=== PATIENT | female | born 2000 | race African-American/Black ===

== ENCOUNTER → 2022-05-06 | Outpatient (CLI) | payer MEDICAID ==
[~2022-05-06] MED LIST: REGLAN 10MG10 MG/TAB PO
== END ==
LOC: COL.RAD 06:15
DX: K80.20 Calculus of gallbladder without cholecystitis without obstruction (principal)

== ENCOUNTER 2022-06-30 12:46 | Outpatient (CLI) | payer MEDICAID ==
[~2022-06-30] VITALS: Ht 165.1 cm; Wt 119.1 kg
[2022-06-30] MEDS ORDERED: FERROUS SU325 MG/TAB PO (13:27)
[2022-06-30] MEDS ORDERED: PRENATAL TABLET PO (13:27)
[2022-06-30 13:30] VITALS: BP 110/53; PULSE 93; TEMP 98.1
--- NOTE | 2022-06-30 13:30 | NUR ---
1310- Pt arrives on unit via wheelchair with her mother. Complains of red vaginal bleeding. Pt and this RN into bathroom. Pt shows this RN pants that has a golf ball sized amount of dark red/brown blood noted. Pt states she put on a peripad after she noticed blood in her pants. Peripad shows scant dark red/brown blood, looks like it absorbed what was on Pts perineum, no soaking noted into pad. Pt void a scant amount into specimen cup. Changes into gown. 1313- Pt into bed. EFM and TOCO on and tracing. VSS. Assessments completed. Pt denies LOF, UCs, cramping. Pt denies intercourse within the past 24hrs. Denies fall or trama to abd. Pt also complains of headache x3 days. States its on the sides of her head, denies taking pain medication for this, pain 6/10.
[2022-06-30 14:00] VITALS: BP 107/52; PULSE 92
--- NOTE | 2022-06-30 14:00 | NUR ---
1350- SVE by this RN, closed, mid-position. Trace amount of brown discharge noted on exam glove, no active bleeding noted.
[2022-06-30 14:21] LABS: BASO % 0.1 % (0.0-2.0); EOS # 0.1 K/mm3 (0.0-0.7); EOS % 0.8 % (0.0-4.0); GRAN # 6.9 K/mm3 (1.4-6.5); GRAN % 77.5 % (42.2-75.2); HEMATOCRIT 32.1 % (37.0-47.0); HEMOGLOBIN 10.9 g/dl (12.5-16.0); LYMPH # 1.3 K/mm3 (1.2-3.4); LYMPH % 14.8 % (20.0-51.0); MEAN CELL VOLUME 83 fl (80.0-100.0); MEAN CORPUSCULAR HEMOGLOBIN 28 pg (27-31); MEAN CORPUSCULAR HGB CONC 34 g/dl (33.0-37.0); MEAN PLATELET VOLUME 11.8 fl (7.4-10.4); MONO # 0.6 K/mm3 (0.1-0.6); MONO % 6.6 % (1.7-9.3); PLATELET COUNT 231 K/mm3 (130-400); RED BLOOD COUNT 3.89 M/mm3 (4.10-5.30)
[2022-06-30 14:30] VITALS: BP 118/57; PULSE 86
[2022-06-30 14:45] LABS: ALBUMIN 2.6 gm/dL (3.5-5.0); BILIRUBIN,TOTAL 0.4 mg/dL (0.2-1.2); CALCIUM 8.7 mg/dL (8.4-10.2); CREATININE, serum 0.6 mg/dL (0.57-1.11); TOTAL PROTEIN 6.7 gm/dL (6.2-8.1)
--- NOTE | 2022-06-30 16:00 | NUR ---
1505- Dr Guzman at nurses station, updated on Pt status, reviews strip on OB [facility], reviews labs in [facility]. 1531- LR bolus completed. IV to Saline lock. Pt up to void and check for vaginal bleeding. 1540- Dr Guzman to bedside. Discusses Pt status and plan to discharge home. Pt states she had a small amount of brown discharge on toilet paper when she wiped. Questions encouraged and answered. 1600- Discharge paperwork given and explained. Pt ambulates off unit in stable condition.
== END 2022-06-30 16:00 | disposition home or self-care (01) ==
LOC: LDRO 12:46 → COL.ER 12:46 → EDSTATUS 15:58 → LDRO 16:00
PROVIDERS: Obstetrics & Gynecology
DX: O46.93 Antepartum hemorrhage, unspecified, third trimester (principal); Z3A.29 29 weeks gestation of pregnancy
CPT/HCPCS: J7120